=== PATIENT | female | born 1965 | race Caucasian/White ===

== ENCOUNTER 2017-08-10 19:14 | Emergency (ER) | payer MEDICAID ==
[~2017-08-10] VITALS: Ht 165.1 cm; Wt 74.8 kg
[2017-08-10 19:33] VITALS: BP 151/90
[2017-08-10] MEDS ORDERED: KETOROLAC 30 MG/ML VIAL IM ONE (20:35)
[2017-08-10 21:30] VITALS: BP 136/85
== END 2017-08-10 21:30 | disposition home or self-care (01) ==
LOC: MED 19:14
DX: R07.89 Other chest pain (principal); R03.0 Elevated blood-pressure reading, without diagnosis of hypertension
CPT/HCPCS: 71045; 81002; 93005; 96372; 99284; J1885; Q0092